=== PATIENT | female | born 1950 | race Caucasian/White ===

== ENCOUNTER → 2020-06-14 | Outpatient (CLI) | payer MEDICARE | LOC: HEART CORB 11:00 | DX: I48.91 Unspecified atrial fibrillation (principal) | CPT/HCPCS: 93306 ==

== ENCOUNTER → 2021-08-17 | Outpatient (CLI) | payer MEDICARE | LOC: KOH-I 08-11 10:30 → MRI 08:31 | DX: C20 Malignant neoplasm of rectum (principal) | CPT/HCPCS: 72195 ==